=== PATIENT | male | born 1935 | race Caucasian/White ===

== ENCOUNTER 2016-10-05 11:10 | Outpatient (CLI) ==
[2016-10-05 11:28] LABS: BASOPHILS # (AUTO) 0.1 K/uL (0-0.2); BASOPHILS % (AUTO) 0.9 % (0.0-3.0); EOSINOPHILS # (AUTO) 0.8 K/ul (0.0-0.7); EOSINOPHILS % (AUTO) 6.4 % (0.0-7.0); HEMATOCRIT 35.7 % (42.0-52.0); HEMOGLOBIN 11.6 g/dl (14.0-18.0); IMMATURE GRANULOCYTE % (AUTO) 0.7 % (0.0-5.0); LYMPHOCYTES # (AUTO) 2.3 K/uL (0.60-3.4); LYMPHOCYTES % (AUTO) 19.4 (10.0-50.0); MEAN CORPUSCULAR HEMOGLOBIN 28.6 pg (27.0-31.0); MEAN CORPUSCULAR HGB CONC 32.5 (31.8-35.4); MEAN CORPUSCULAR VOLUME 87.9 fl (80.0-94.0); MONOCYTES # (AUTO) 0.6 K/uL (0.4-2.0); MONOCYTES % (AUTO) 5.4 (0-10); NEUTROPHILS # (AUTO) 7.8 K/ul (2.0-6.9); NEUTROPHILS % (AUTO) 67.2; PLATELET COUNT 315 10^3/uL (140-440); RED BLOOD COUNT 4.06 10^6/ul (4.70-6.10); WHITE BLOOD COUNT 11.64 K/ul (4.2-10.2)
[2016-10-05 12:18] LABS: ALBUMIN 3.4 g/dL (3.4-5.0); ALBUMIN/GLOBULIN RATIO 1.13; ANION GAP 14.5; BILIRUBIN,TOTAL 0.4 mg/dL (0.00-1.20); BUN/CREATININE RATIO 12.4; CALCIUM 9.5 mg/dL (8.2-10.2); CREATININE 1.29 mg/dL (0.60-1.10); POTASSIUM 4.5 mmol/L (3.5-5.1); TOTAL PROTEIN 6.4 g/dL (5.8-8.1)
== END 2016-10-05 11:11 | disposition home or self-care (01) ==
LOC: NONPT 11:10
PROVIDERS: ATTEND Internal Medicine Infectious Disease
DX: G03.9 Meningitis, unspecified (principal)
CPT/HCPCS: 80053; 80202; 85025

== ENCOUNTER 2017-01-13 10:15 | Outpatient (CLI) ==
--- NOTE | 2017-01-13 10:59 | US ---
EXAM: Renal ultrasound HISTORY: Renal insufficiency. Technique: Multiple sonographic images through the kidneys were obtained. Color duplex Doppler was used to interrogate vascular flow. Findings: Neither ureteral jet was visualized. Diffuse bladder wall thickening. The right kidney measures 11.3 cm in long length demonstrating increased cortical echogenicity witho ut evidence for hydronephrosis or shadowing calculus. 2 cm minimally complicated right renal cyst w ith internal echoes and thin septation. The left kidney measures 11.3 cm in long length demonstrating increased cortical echogenicity withou t evidence for hydronephrosis or shadowing calculus. 1.0 cm anechoic left renal cyst. Impression: 1. No hydronephrosis. 2. Increased cortical echogenicity of bilateral kidneys suggesting medical renal disease. 3. Complicated right renal cyst. Recommend follow-up ultrasound in 6 months to document stability. 4. Simple left renal cyst. 5. Diffuse bladder wall thickening.
== END 2017-01-13 10:16 | disposition home or self-care (01) ==
LOC: RAD 10:15
PROVIDERS: ATTEND Family Medicine
DX: N28.9 Disorder of kidney and ureter, unspecified (principal)
CPT/HCPCS: 76770

== ENCOUNTER 2017-05-28 11:22 | Outpatient (CLI) ==
--- NOTE | 2017-05-28 13:04 | DI ---
Exam: Three x-rays of the lumbar spine. Comparison: CT lumbar spine performed 05/28/2017. Reason for exam: Low back pain. FINDINGS: Multilevel degenerative disease is seen within the lumbar spine. There is dextroscoliosis with a rotatory component and large osteophyte formation, facet hypertrophy and intervertebral body disc space height narrowing. There is straightening of the lumbar lordotic curve. The imaged osseou s structures appear diffusely demineralized. Atherosclerotic disease is seen within the aorta. Impression: Multilevel degenerative disease of the lumbar spine with large osteophyte formation, facet hypertroph y, intervertebral body disc space height narrowing, and straightening of the lumbar lordotic curve. No obvious fracture is seen. If clinical concern exists for radiculopathy or myelopathy, MRI may be performed.
--- NOTE | 2017-05-28 13:12 | CT ---
EXAM: CT of the lumbar spine without contrast History: Lower back pain. Comparison: Lumbar spine radiograph 05/28/2017 Technique: Multiplanar CT images through the lumbar spine were obtained without the administration o f IV contrast Findings: Atherosclerotic vascular calcifications. Scattered colonic stool. Small 3 mm calcification seen sara r the base of the bladder. No acute fracture or subluxation. Mild to moderate disc space narrowing at L5-S1. Mild disc space n arrowing seen elsewhere. Large anterior osteophytes seen at L2-L3 and L3-L4. Degenerative changes o f the bilateral sacroiliac joints with bridging osteophytes. T12-L1: Small posterior disc osteophyte complex with no significant bony central canal stenosis or b narendra neural foraminal narrowing. L1-L2: No significant disc bulge or central canal stenosis. Moderate right and mild to moderate lef t bony neural foraminal narrowing secondary to ligamentous and facet hypertrophy. L2-L3: Small to moderate disc protrusion with no significant central canal stenosis. Moderate to sev ere left and moderate right bony neural foraminal narrowing secondary to ligamentous and facet hypert rophy. L3-L4: Modest disc protrusion with mild central canal stenosis. Severe right and moderate left bony neural foraminal narrowing secondary to ligamentous and facet hypertrophy. L4-L5: Small disc protrusion effacing the anterior thecal sac with no significant bony central canal stenosis. Moderate to severe bilateral bony neural foraminal narrowing secondary to ligamentous and facet hypertrophy. L5-S1: Small disc osteophyte complex with no significant bony central canal stenosis. Severe left a nd moderate to severe right bony neural foraminal narrowing secondary to ligamentous and facet hypert rophy. Impression: 1. No acute osseous abnormality of the lumbar spine. 2. Degenerative changes with level by level analysis as detailed above.
== END 2017-05-28 11:23 | disposition home or self-care (01) ==
LOC: RAD 11:22
PROVIDERS: ATTEND Family Medicine
DX: M54.9 Dorsalgia, unspecified (principal)